=== PATIENT | male | born 1940 | race Caucasian/White ===

== ENCOUNTER 2021-06-01 13:11 | Inpatient (IN) | payer MEDICARE, BC ==
[~2021-06-01] VITALS: Ht 175.3 cm; Wt 66.3 kg
[2021-06-01] VITALS (11 sets, daily range): BP systolic 121–197; BP diastolic 55–79
--- NOTE | 2021-06-01 13:41 | REP ---
INDICATION: DYSPNEA/COUGH. COMPARISON: None. TECHNIQUE: Single portable AP view of the chest was performed. FINDINGS: There is a large pneumothorax on the right with collapse of the right lung. Left lung is well aerated with no acute infiltrate. There is no evidence of tension associated with the pneumothorax, the midline structures are not displaced. The heart is not enlarged. There is some calcification of the thoracic aorta.The visualized osseous structures appear intact. IMPRESSION: Large right pneumothorax. No deviation of the trachea or midline structures. <Electronically signed by Braden Sanchez > 06/01/21 [id number]
[2021-06-01] MEDS: LEVALBUTEROL 1.25 MG/0.5 ML CONCENTRATE NEB NEB SCH ×2 (14:00→19:26)
[2021-06-01 14:43] LABS: BASO % 0.1 % (0.0-1.0); EOS % 0.2 % (0.0-3.0); HEMATOCRIT 45.4 % (42.0-52.0); HEMOGLOBIN 15.3 g/dl (13.5-17.5); LYMPH # 0.7 10^3/uL (1.5-5.0); LYMPH % 7.2 % (24.0-44.0); MEAN CORPUSCULAR HEMOGLOBIN 32.6 pg (27.0-33.0); MEAN CORPUSCULAR HGB CONC 33.7 g/dl (32.0-36.5); MEAN CORPUSCULAR VOLUME 96.8 fl (80.0-96.0); MONO # 0.3 10^3/uL (0.0-0.8); MONO % 3.3 % (2.0-8.0); NEUTROPHILS # 9.1 10^3/uL (1.5-8.5); NEUTROPHILS % 88.7 % (36.0-66.0); PLATELET COUNT, AUTOMATED 200 10^3/uL (150-450); RED BLOOD COUNT 4.69 10^6/uL (4.30-6.10); WHITE BLOOD COUNT 10.2 10^3/uL (4.0-10.0)
[2021-06-01] MEDS ORDERED: VITA500C24 PO (15:12)
[2021-06-01] MEDS ORDERED: RAMI1CAP26 PO (15:12)
[2021-06-01] MEDS ORDERED: PRIM250T8 PO (15:12)
[2021-06-01] MEDS ORDERED: SM F10002 PO (15:12)
[2021-06-01] MEDS ORDERED: ATOR1TAB21 PO (15:12)
[2021-06-01] MEDS ORDERED: NIFE1TAB50 PO (15:12)
[2021-06-01] MEDS ORDERED: INDE60CA4 PO (15:12)
[2021-06-01] MEDS ORDERED: HYDR12.55 PO (15:12)
[2021-06-01] MEDS ORDERED: PENT400T23 PO (15:12)
[2021-06-01] MEDS ORDERED: ECOT81TA5 PO (15:12)
[2021-06-01] MEDS ORDERED: OYST500C PO (15:12)
[2021-06-01] MEDS ORDERED: KP F1200 PO (15:12)
[2021-06-01 15:19] LABS: ALBUMIN 3.2 GM/DL (3.2-5.2); ALT/SGPT 22 U/L (12-78); BILIRUBIN,DIRECT 0.2 MG/DL (0.0-0.2); BILIRUBIN,TOTAL 0.5 MG/DL (0.2-1.0); BLOOD UREA NITROGEN 13 MG/DL (7-18); CARBON DIOXIDE LEVEL 28 MEQ/L (21-32); CHLORIDE LEVEL 109 MEQ/L (98-107); CK-MB VALUE MASS < 1.0 NG/ML (<3.6); CPK CREATINE PHOSPHOKINASE 67 U/L (39-308); CREATININE FOR GFR 0.59 MG/DL (0.70-1.30); GLOMERULAR FILTRATION RATE > 60.0 (>35); GLUCOSE, FASTING 116 MG/DL (70-100); MB/CK RELATIVE INDEX 1.49 (< OR =4); NT-PRO BNP 271 PG/ML (<450); POTASSIUM SERUM 4.3 MEQ/L (3.5-5.1); SODIUM LEVEL 142 MEQ/L (136-145); THYROID STIMULATING HORMONE 0.763 uIU/ML (0.358-3.740); THYROXINE (T4) 10.4 UG/DL (4.5-12.0); TROPONIN I < 0.02 NG/ML (< 0.10)
[2021-06-01] MEDS ORDERED: BISACODYL 10 MG SUPP PR PRN (15:20)
[2021-06-01] MEDS ORDERED: ONDANSETRON 4MG/2ML VIAL IV PRN (15:20)
[2021-06-01] MEDS ORDERED: NORCO, ANEXSIA 5/325MG TABLET (HYDROcodone/ACETAMINOPHEN) PO PRN (15:20)
[2021-06-01] MEDS ORDERED: PERCOCET 5MG/325MG TAB PO PRN ×2 (15:20)
[2021-06-01] MEDS ORDERED: ACETAMINOPHEN TAB 650MG DOSE (2X325MG) PO PRN (15:20)
[2021-06-01] MEDS ORDERED: LEVALBUTEROL 1.25 MG/0.5 ML CONCENTRATE NEB NEB PRN (15:20)
[2021-06-01] MEDS ORDERED: HOME MED LIST COMPLETE! XX SCH (15:50)
[2021-06-01] MEDS ORDERED: LIDOCAINE 1% MDV 20ML VIAL As Ordered ONE (16:00)
[2021-06-01] MEDS ORDERED: MIDAZOLAM INJ 2MG/2ML VIAL (J2250 PER 1MG) As Ordered ONE (16:01)
--- NOTE | 2021-06-01 16:04 | ECGEPIP ---
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
--- NOTE | 2021-06-01 16:07 | HPEPDOC ---
[facility] Medical History & Physical Date of Admission Jun 01, 2021 Date of Service: Jun 01, 2021 History and Physical CHIEF COMPLAINT: Shortness of breath HISTORY OF PRESENT ILLNESS: 81-year-old male with a past medical history of hypertension and essential tremor. He developed sudden onset shortness of breath on Monday morning, with associated right-sided and central chest discomfort and pressure. Patient states that he felt well the day prior. Over the next 24 hours he developed worsening shortness of breath without cough or hemoptysis. Patient sought help at an urgent care center where he was given nasal cannula with oxygen and an EKG was obtained. He was thought to have A. fib and was sent to the ER. EKG in the ER did not reveal atrial fibrillation but showed sinus rhythm with PVCs. Patient's chest x-ray in the ER showed a large right-sided pneumothorax without evidence for tension. Dr. Jack was consulted from the ER and admitted to PCU under hospitalist service. Chest tube was placed on 06/01/2021 with subsequent lung reexpansion on chest x-ray. PAST MEDICAL HISTORY: Hypertension Essential tremor PAST SURGICAL HISTORY: RLE angioplast for PAD SOCIAL HISTORY: drinks 3-4 alcoholic drinks per night, denies hx of withdrawal active smoker, smoked all his life, smokes 1/4 pack now. no illicit drug use FAMILY HISTORY: reviewed with patient, no pertinent family history provided. ALLERGIES: Please see below. REVIEW OF SYSTEMS: 10 point ROS conducted, relevant findings are noted in HPI. HOME MEDICATIONS: Please see below. PHYSICAL EXAMINATION: VITAL SIGNS: please see below General: NAD, comfortable HEENT: PERRLA, EOMI, sclerae clear Neck: supple, normal ROM, no JVD Respiratory: R chest tube in place, good aeration of bilateral lung bases. CVS: RRR, normal S1, S2, no murmurs Abdo: soft, no masses, no hepatosplenomegaly, BS+, no rebound tenderness Extremities: no edema, pulses 2+, no cyanosis, cap refill < 2 seconds. Uric acid deposits R 2nd toe c/w hx of gout. MSK: no joint deformities, normal ROM Neuro: no focal neuro deficits, moving all 4 extremities, CN2-12 intact. Strength 5/5 in all 4 extremities. No nystagmus. Psych: calm, cooperative, AAO x 3 LABORATORY DATA: See below. IMAGING: CXR (06/01/21): IMPRESSION: Large right pneumothorax. No deviation of the trachea or midline structures. CXR (06/01/21): FINDINGS: The technique utilized in obtaining the radiograph has magnified the cardiac silhouette and accentuated the interstitial markings. The large right-sided pneumothorax has been reduced. A tiny minimal right apical pneumothorax persists. There is a right-sided thoracotomy tube in place the tip of which is in the apical region. The left lung is unchanged. There is no significant change in appearance of the cardiomediastinal silhouette or osseous structures. IMPRESSION: Reduced right-sided pneumothorax with resultant findings and right-sided chest tube as described above. MICROBIOLOGY: Please see below. ASSESSMENT: 81-year-old male with a past medical history of hypertension and essential tremor. He developed sudden onset shortness of breath on Monday morning, with associated right-sided and central chest discomfort and pressure. Diagnosed with a 100% R sided pneumothorax. . PLAN: R sided pneumothorax: imaging reviewed above. Chest tube placed by Dr. Jack, lung re-expanded on repeat CXR. Chest tube to suction. Plan for CT chest in AM. Pain control with oxycodone. Bowel regimen. PAD: resume ASA, pentoxyfylline. Hx of angioplasty RLE. Needs to f/u with vascu lar surgery on outpatient basis. HTN: resume ramipril 10 mg PO daily. Resume nifedipine 90 mg PO daily. Essential tremor: resume propranolol 60 mg daily. HLD: c/w atorvastatin 20 mg daily Chronic tobacco use: smoking cessation counseling provided. Suspect underlying emphysema. DVT pp: heparin 5000 units q12h. Vital Signs Vital Signs Date Time Temp Pulse Resp B/P (MAP) Pulse Ox O2 Delivery O2 Flow Rate FiO2 06/01/21 15:12 98.5 06/01/21 13:45 60 21 160/73 (102) 94 Nasal Cannula 2.0 Laboratory Data Labs 24H Laboratory Tests 2 06/01/21 13:23: Immature Granulocyte % (Auto) 0.5, Neutrophils (%) (Auto) 88.7H, Lymphocytes (%) (Auto) 7.2L, Monocytes (%) (Auto) 3.3, Eosinophils (%) (Auto) 0.2, Basophils (%) (Auto) 0.1, Neutrophils # (Auto) 9.1H, Lymphocytes # (Auto) 0.7L, Monocytes # (Auto) 0.3, Eosinophils # (Auto) 0.0, Basophils # (Auto) 0.0, Nucleated Red Blood Cells % (auto) 0.0, Anion Gap 5L, Glomerular Filtration Rate > 60.0, Calcium Level 9.0, Total Bilirubin 0.5, Direct Bilirubin 0.2, Aspartate Amino Transf (AST/SGOT) 15, Alanine Aminotransferase (ALT/SGPT) 22, Alkaline Phosphatase 67, Total Creatine Kinase 67, Creatine Kinase MB < 1.0, Creatine Kinase MB Relative Index 1.49, Troponin I < 0.02, OE-Suf-O-Type Natriuretic Peptide 271, Total Protein 7.0, Albumin 3.2, Albumin/Globulin Ratio 0.8, Thyroid Stimulating Hormone (TSH) 0.763, Thyroxine (T4) 10.4 06/01/21 14:17: Lactic Acid Level 1.7 CBC/BMP Laboratory Tests 06/01/21 13:23 Microbiology Microbiology 06/01/21 Respiratory Virus Panel (PCR) ([facility]), Received Pending 06/01/21 Blood Culture, Received Pending 06/01/21 Blood Culture, Received Pending Home Medications Scheduled Ascorbic Acid (Vitamin C) 500 Mg Capsule, 500 MG PO DAILY Aspirin (Ecotrin) 81 Mg Tablet.dr, 81 MG PO DAILY Atorvastatin Calcium (Atorvastatin Calcium) 20 Mg Tablet, 20 MG PO DAILY Calcium Carbonate/Vitamin D3 (Calcium 500+D Tablet Chew) 1 Each Tab.chew, 1 TAB PO DAILY Fish Oil/Dha/Epa (Fish Oil 1,200 mg Fish Oil) 1 Each Capsule, 1 CAP PO TID Flaxseed Oil (Flax Oil) 1,000 Mg Capsule, 1,000 MG PO BID Hydrochlorothiazide (Hydrochlorothiazide) 12.5 Mg Tablet, 12.5 MG PO DAILY Nifedipine (Nifedipine ER) 90 Mg Tab.er.24, 90 MG PO DAILY Pentoxifylline (Pentoxifylline) 400 Mg Tablet.er, 400 MG PO TID Primidone (Primidone) 250 Mg Tablet, 250 MG PO BID Propranolol Hcl (Inderal LA) 60 Mg Cap.sa.24h, 60 MG PO DAILY Ramipril (Ramipril) 10 Mg Capsule, 10 MG PO DAILY Allergies Coded Allergies: No Known Allergies (Verified Allergy, Unknown, 06/01/21) A-FIB/CHADSVASC A-FIB History Current/History of A-Fib/PAF?: No ANNEMARIE DODSON MD Jun 01, 2021 16:07
[2021-06-01] MEDS: KCL 20MEQ IN D5/NS 1000ML 1,000 ML IV SCH (16:14)
--- NOTE | 2021-06-01 16:44 | REP ---
INDICATION: after chest tube placed. COMPARISON: Earlier today TECHNIQUE: Portable FINDINGS: The technique utilized in obtaining the radiograph has magnified the cardiac silhouette and accentuated the interstitial markings. The large right-sided pneumothorax has been reduced. A tiny minimal right apical pneumothorax persists. There is a right-sided thoracotomy tube in place the tip of which is in the apical region. The left lung is unchanged. There is no significant change in appearance of the cardiomediastinal silhouette or osseous structures. IMPRESSION: Reduced right-sided pneumothorax with resultant findings and right-sided chest tube as described above. <Electronically signed by Nuno Martinez > 06/01/21 1640
[2021-06-01] MEDS ORDERED: MIDAZOLAM INJ 2MG/2ML VIAL (J2250 PER 1MG) IV STA (16:49)
[2021-06-01] MEDS ORDERED: LIDOCAINE 1% MDV 20ML VIAL SC ONE (16:50)
[2021-06-01] MEDS ORDERED: MIDAZOLAM INJ 2MG/2ML VIAL (J2250 PER 1MG) IV ONE (16:55)
[2021-06-01] MEDS: KETOROLAC 30 MG/ML 1ML VIAL IV SCH ×2 (17:20→23:08)
[2021-06-01 17:55] LABS: ABG BASE EXCESS -1.4 (-2.0-2.0); ABG HCO3 21.5 MEQ/L (22.0-26.0); ABG O2 SATURATION 97.6 % (95.0-99.0); ABG PARTIAL PRESSURE CO2 31.6 mmHg (35.0-45.0); ABG PARTIAL PRESSURE O2 97.7 mmHg (75.0-100.0); ABG STANDARD HCO3 23.3 MEQ/L (22.0-26.0); ABG TOTAL CO2 22.4 MEQ/L (23.0-31.0)
--- NOTE | 2021-06-01 18:05 | CR ---
CONSULTATION DATE: 06/01/2021 Patient seen at the requests of Dr. Sanchez of the emergency room for shortness of breath and pneumothorax on the right. HISTORY OF PRESENT ILLNESS: Patient is an 81-year-old white male who 3 days prior to admission on Monday awoke with some shortness of breath but mostly with chest pain and pressure. The pain was concentrated on the right side toward the middle of his chest. This progressed to shortness of breath. Over the next succeeding 2 days he became more and more short of breath such that he could hardly walk around his home. He denies having a significant cough or change in his cough prior to Monday. He has had no fever, chills, or sweats. His chest pain has all but disappeared now. He is short of breath and, in fact, in taking history he has trouble completing full sentences. There has been no dysphagia and no coughing with oral intake. He was found to have 100% pneumothorax on the right, and he was immediately admitted to the progressive care unit (PCU) for chest tube placement. MEDICAL HISTORY: 1. Hypertension. 2. Peripheral vascular disease. SURGICAL HISTORY: A right-sided lower leg angioplasty about 20 years ago. ALLERGIES: None. HOME MEDICATIONS: - vitamin C 500 mg daily - aspirin 81 mg daily - atorvastatin 20 mg daily - calcium carbonate with vitamin D one daily - fish oil 1200 mg three times a day - flax seed oil 1000 mg twice a day - hydrochlorothiazide 12.5 mg daily - nifedipine 90 mg daily - pentoxifylline 400 mg three times a day - primidone 250 mg twice a day - Inderal LA (propranolol) 60 mg daily - ramipril 10 mg daily HABITS: Smokes about a quarter pack a day of reservation cigarettes. He has been smoking all of his life. Alcohol: Drinks about three light beers a day. No illicit drugs. EXPOSURES: No dogs, birds, or cats at home. TRAVEL HISTORY: He has been to [place] a number of times. No travel history to the [facility] or foreign travel. OCCUPATIONAL HISTORY: He used to be a pre school teacher, teaching ceramics and mechanical drawing. FAMILY HISTORY: Not pertinent to the acute medical situation. REVIEW OF SYSTEMS: CONSTITUTIONAL: Without fevers, chills, sweats, or night sweats. EYES: Without diplopia, without amaurosis fugax, without prior jaundice. NOSE: Without epistaxis. MOUTH: Has his own teeth. RESPIRATORY: See history of present illness (HPI). CARDIAC: No prior history of myocardial infarctions. Sleeps in a slightly inclined bed to "prevent snoring." Has had orthopnea and paroxysmal nocturnal dyspnea the last few days but not before. No peripheral edema. He does have intermittent claudication in his right leg when walking longer distances. GASTROINTESTINAL: Without nausea, vomiting, diarrhea, constipation, melena, hematochezia. Without hematemesis or abdominal pain. GENITOURINARY; Without hematuria, dysuria, or prior history of renal stones. Has noticed decreased force of stream over the last few years. NEUROLOGIC: Without paresthesias, paralyses, or prior strokes. Has essential tremor. ENDOCRINE: Without diabetes or thyroid disease. PSYCHIATRIC: Without pathologic anxieties, depressions, or psychoses. PHYSICAL EXAMINATION: Well-developed, well-nourished white male in moderate to mild distress, unable to complete full sentences. Temperature is 98.4 with a heart rate of 79 in a sinus rhythm, respiratory rate of 18 without the use of accessory muscles, who is 92% saturated on 2 liters nasal cannula and whose blood pressure is 177/76. Eyes: Pupils equal, round, and reactive to light. Extraocular muscles intact. Sclerae anicteric. Nose without deformity. Head: Normocephalic. Mouth shows his mucous membranes to be pink and moist. Lips and commissures are without lesions. He has his own teeth but he has multiple missing teeth on the uppers and lowers. Neck is supple. There is no jugular venous distention, no subcutaneous emphysema. Trachea is midline. Lungs show markedly decreased breath sounds on the right with hyperresonance on the right. Left side shows normal vesicular sounds without wheezes, rhonchi, or rales. Percussion note is full to the diaphragm with normal resonance on the left side. Abdomen is soft, nontender. Bowel sounds are positive. There is no hepatomegaly. No costovertebral angle (CVA) tenderness. Pulses show absent dorsalis pedis pulses. I can barely feel his femoral pulses, and he has bilateral bruits, albeit soft. He has full carotid upstrokes without bruits. Skin was warm, dry, and perfused without cyanosis or mottling, including that of the nailbeds and knees. Extremities show no pretibial edema, no calf tenderness, no differential swelling of the upper extremities. Neck is supple. There is no jugular venous distention, no subcutaneous emphysema. Trachea is midline. There is no thyromegaly or lymphadenopathy. Psychiatric shows him to be awake, alert, oriented times three with appropriate mood and affect and conversational. Neurologic shows II-XII intact, Normal gross motor, gross sensation intact. Gait is not tested. He does have a very coarse intention tremor. INVESTIGATIONS: White count is 10.2 with hemoglobin and hematocrit of 15.3 and 45.4, respectively, with a platelet count of 200. Differential shows 88% neutrophils, 7% lymphocytes, 3% monocytes. There are no immature forms or toxic granulations. Chemistries show essentially normal electrolytes with a BUN and creatinine of 13 and 0.59, a glucose of 116, and a calcium of 9.0 with a corresponding albumin of 3.2. AST and ALT are normal, as is his bilirubin. His chest x-ray shows a complete pneumothorax on the right side. Lung is pancaked along the mediastinum. There is a mediastinal shift to the left. There is no subcutaneous emphysema. IMPRESSION: 1. One hundred percent pneumothorax on the right. 2. Tobacco abuse, probably underlying emphysema. 3. Peripheral vascular disease. 4. Hypertension. 5. Essential tremor. 6. Dyslipidemia. PLAN AND DISCUSSION: I will immediately place a chest tube to expand the lung. I will place the chest tube on suction. Tomorrow I will obtain a CT scan to see what is underlying the lung. Hopefully he will not have a continuous air leak and as this is his first pneumothorax we can treat this conservatively without taking him to the operating room. We will address pain control from the chest tube and undertake prophylactic heparinization for deep venous thrombosis (DVT) prophylaxis.
--- NOTE | 2021-06-01 18:05 | RO ---
OPERATIVE NOTE DATE OF OPERATION: 06/01/2021 PREOPERATIVE DIAGNOSIS: One hundred percent pneumothorax on the right. POSTOPERATIVE DIAGNOSIS: One hundred percent pneumothorax on the right. PROCEDURE: Insertion of a right anterior-superior chest tube with moderate sedation. SURGEON: Dr. Leonard Jack DESCRIPTION OF PROCEDURE: Under satisfactory moderate sedation eventually achieved with 4 mg of Versed, patient was prepped and draped in the usual sterile fashion. The proposed incision site had been previously marked and was infiltrated with 1% lidocaine down to the pleura. An incision was made, and a tunnel was created in the chest without difficulty. A #20 chest tube was placed and directed toward the apex. The chest tube was secured to the chest wall with a #2 Tevdek suture and connected to the Pleur-evac. There was a large gush of air, which eventually stopped. Patient tolerated the procedure well, and a chest x-ray is pending.
[2021-06-01] MEDS ORDERED: LORazepam 2 MG TAB PO PRN (19:40)
[2021-06-01] MEDS: DOCUSATE SODIUM 100MG CAPSULE PO SCH (21:07)
[2021-06-01] MEDS: PRIMIDONE 250 MG TAB PO SCH (21:07)
[2021-06-01] MEDS: PENTOXIFYLLINE 400 MG TAB PO SCH (21:08)
[2021-06-01] MEDS: HEPARIN SOD (PORCINE) 5000UNITS/ML 1ML VIAL/SYRINGE SC SCH (21:08)
[2021-06-01] MEDS: THIAMINE 100 MG TAB PO SCH (21:08)
[2021-06-02] VITALS (16 sets, daily range): BP systolic 135–156; BP diastolic 59–90; O2SAT 95
[2021-06-02] MEDS: LEVALBUTEROL 1.25 MG/0.5 ML CONCENTRATE NEB NEB SCH ×4 (02:00→19:34)
[2021-06-02] MEDS: KCL 20MEQ IN D5/NS 1000ML 1,000 ML IV SCH ×3 (03:58→17:26)
[2021-06-02 04:55] LABS: BASO % 0.1 % (0.0-1.0); EOS % 0.2 % (0.0-3.0); HEMATOCRIT 43.3 % (42.0-52.0); HEMOGLOBIN 14.3 g/dl (13.5-17.5); LYMPH # 2.2 10^3/uL (1.5-5.0); LYMPH % 15.4 % (24.0-44.0); MEAN CORPUSCULAR HEMOGLOBIN 32.4 pg (27.0-33.0); MEAN CORPUSCULAR VOLUME 98.2 fl (80.0-96.0); MONO # 1.7 10^3/uL (0.0-0.8); MONO % 11.7 % (2.0-8.0); NEUTROPHILS # 10.4 10^3/uL (1.5-8.5); PLATELET COUNT, AUTOMATED 190 10^3/uL (150-450); RED BLOOD COUNT 4.41 10^6/uL (4.30-6.10); WHITE BLOOD COUNT 14.5 10^3/uL (4.0-10.0)
[2021-06-02 05:16] LABS: BLOOD UREA NITROGEN 21 MG/DL (7-18); CALCIUM LEVEL 8.2 MG/DL (8.8-10.2); CARBON DIOXIDE LEVEL 27 MEQ/L (21-32); CHLORIDE LEVEL 111 MEQ/L (98-107); CREATININE FOR GFR 0.74 MG/DL (0.70-1.30); GLOMERULAR FILTRATION RATE > 60.0 (>35); GLUCOSE, FASTING 108 MG/DL (70-100); MAGNESIUM LEVEL 1.9 MG/DL (1.8-2.4); POTASSIUM SERUM 3.3 MEQ/L (3.5-5.1); SODIUM LEVEL 144 MEQ/L (136-145)
[2021-06-02] MEDS: KETOROLAC 30 MG/ML 1ML VIAL IV SCH ×4 (05:31→23:33)
[2021-06-02 06:09] LABS: ABG BASE EXCESS 0.7 (-2.0-2.0); ABG HCO3 24.1 MEQ/L (22.0-26.0); ABG O2 SATURATION 92.6 % (95.0-99.0); ABG PARTIAL PRESSURE CO2 34.9 mmHg (35.0-45.0); ABG PARTIAL PRESSURE O2 61.5 mmHg (75.0-100.0); ABG TOTAL CO2 25.2 MEQ/L (23.0-31.0); ABG pH (ARTERIAL) 7.457 UNITS (7.350-7.450)
[2021-06-02] MEDS ORDERED: POTASSIUM CHLORIDE 10MEQ SR TABLET PO ONE ×2 (07:45→09:20)
[2021-06-02] MEDS ORDERED: FLUBLOK(EGG FREE)(QUAD)INFLUENZA VACC 0.5ML SYRINGE 18YRS & OLDER IM ONE (09:00)
--- NOTE | 2021-06-02 09:52 | REP ---
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 TECHNIQUE: Standard helical technique without contrast FINDINGS: There is no mediastinal or hilar adenopathy. There is a tiny amount of right pleural fluid in the dependent portion. This is seen in conjunction with mild pleural thickening. There is no pericardial effusion. The imaged upper abdomen shows bilateral renal calcifications most consistent with renovascular calcifications. Evaluation of the osseous structures shows spinal degenerative changes and bony demineralization. Evaluation of the lung luke shows a right-sided thoracotomy tube the tip of which is in the right lung apical region. There is a slight degree of subcutaneous emphysema. There is a mild zone of increased interstitial markings in the posterior right middle lobe and posterior right upper lobe abutting the major fissure. This is nonspecific. There is evidence of biapical pleuroparenchymal scarring. There is no evidence of a pneumothorax. There is a 6 mm size nodule in the left lower lobe. There is a minimal focal zone of ground-glass density in the anterior basal segment of the left lower lobe and in the inferior lingula. There is a small amount of debris in the bronchus intermedius. IMPRESSION: 1. There is the tiniest amount a right pleural fluid. Right-sided thoracotomy tube as described above. No evidence of a pneumothorax. 2. Zones of increased interstitial markings and ground-glass densities as described above likely representing subsegmental atelectatic change. The small zone of increased interstitial markings in the right lung abutting the major fissure potentially represents focal re-expansion pulmonary edema. 3. Left lung nodule as described above. According to the revised Fleischner society criteria this represents a lung rads category 3 nodule for which a six-month follow-up chest CT is recommended. 4. Other findings as described above. <Electronically signed by Nuno Martinez > 06/02/21 1734
--- NOTE | 2021-06-02 09:55 | IPN ---
PROGRESS NOTE DATE: 06/02/2021 SUBJECTIVE: Mr. Burton is doing well today. He has just come back from his CAT scan which I will discuss below. His pain is being fairly well controlled. He is complaining of most of the pain in his back where the chest tube is located at the apex. His vital signs shows a maximum temperature of 99.1 with a heart rate that ranges between 96 and 52 and is sinus rhythm. Respiratory rate of 17-22 without the use of accessory muscles. He is 96% to 98% saturated on now one liter nasal cannula. His blood pressures range between 146/85 to 136/59. His intake and output over the past 24 hours has been recorded as 431 in and nothing out. He weighs 95.3 kg today, which is vastly different from 63 kg yesterday. I suspect the weights are inaccurate as they do not match his intake and output at all. PHYSICAL EXAMINATION: He has equal breath sound on either side. He has no wheezing, rales or rhonchi. Percussion was full to the diaphragm. It is equally resonant on both sides. Cardiac exam is without murmurs, clicks, gallops or rubs. I cannot feel his point of maximum impulse (PMI). S1 and S2 are normal. Abdomen is soft and nontender; bowel sounds are positive. There is no hepatomegaly, no costovertebral angle (CVA) tenderness. Extremities have no pretibial edema, no calf tenderness. No differential swelling of the upper extremities. Skin is warm and dry, and perfused without cyanosis or mottling including that of the nailbeds and knees. Neck is supple. There is no jugular venous distension, no subcutaneous emphysema. Trachea is midline. Mouth shows the mucous membranes to be pink and moist. Lips, tongue, and gums show no thrush. Eyes show his pupils to be equal and reactive. Extraocular motions are intact. Sclerae nonicteric. Neurologically shows cranial nerves II-XII intact with gross motor, gross sensation intact. Gait is also intact. Psychiatric shows him to be awake, alert and oriented times three with appropriate mood and affect and conversational. His white count today is 14.5, up from 10.2 yesterday. Hemoglobin and hematocrit 14.3 and 43.3, unchanged from yesterday, with a platelet count of 190. Differential shows 72% neutrophils, 15% lymphocytes, 11% monocytes. There are no immature forms or toxic granulations. His electrolytes show a marginally low potassium of 3.3. BUN and creatinine are 21 and 0.74 respectively. Glucose is 108 with a calcium of 8.2 and magnesium of 1.9. His chest CT today surprisingly shows very few emphysematous changes. He does have a few larger holes in his upper lobe, which are quite minimal. There is what looks to be a small bleb at the very apex of his lung. I see no mediastinal lymphadenopathy, and there is no pericardial effusion. There are no lung masses. He has some residual atelectasis from his lung expansion. IMPRESSION: 1. Spontaneous pneumothorax. 2. Minimal emphysematous changes. 3. Hypertension. 4. Peripheral vascular disease. 5. Essential tremor. 6. Dyslipidemia. PLAN AND DISCUSSION: I am quite gratified and surprised about his CT scan because of his smoking history. I have counseled him that his smoking days are over. As he is not leaking today, I will take his chest tube off suction. If the x-ray tomorrow shows his lung fully expanded to the chest wall, I will then remove his chest tube and plan for discharge the day after.
[2021-06-02] MEDS: HEPARIN SOD (PORCINE) 5000UNITS/ML 1ML VIAL/SYRINGE SC SCH ×2 (10:17→20:20)
[2021-06-02] MEDS: DOCUSATE SODIUM 100MG CAPSULE PO SCH ×2 (10:18→20:20)
[2021-06-02] MEDS: PANTOPRAZOLE 40MG TAB (PROTONIX) PO SCH (10:18)
[2021-06-02] MEDS: ramipriL 5 MG CAP PO SCH (10:18)
[2021-06-02] MEDS: MOM 30ML SUSPENSION UDC PO SCH (10:18)
[2021-06-02] MEDS: ASPIRIN 81MG ENTERIC TABLET PO SCH (10:18)
[2021-06-02] MEDS: MULTIVITAMINS/MINERALS THERAP 1 TAB PO SCH (10:19)
[2021-06-02] MEDS: ATORVASTATIN 20 MG TAB PO SCH (10:19)
[2021-06-02] MEDS: PROPRANOLOL 60 MG LA CAP PO SCH (10:19)
[2021-06-02] MEDS: NIFEdipine 30 MG XL TAB PO SCH (10:20)
[2021-06-02] MEDS: hydroCHLOROthiazide 12.5 MG CAPSULE PO SCH (10:20)
[2021-06-02] MEDS: PRIMIDONE 250 MG TAB PO SCH ×2 (10:20→20:20)
[2021-06-02] MEDS: PENTOXIFYLLINE 400 MG TAB PO SCH ×3 (10:21→20:20)
[2021-06-02] MEDS: FOLIC ACID 1 MG TAB PO SCH (10:22)
[2021-06-02] MEDS: ASCORBIC ACID 500 MG TAB PO SCH (10:22)
[2021-06-02] MEDS: THIAMINE 100 MG TAB PO SCH ×2 (10:22→20:20)
--- NOTE | 2021-06-02 10:58 | REP ---
INDICATION: after chest tube placed. COMPARISON: Multiple the latest 06/01/2021 a 4:31 p.m. a portable exam TECHNIQUE: PA and lateral FINDINGS: The cardiomediastinal silhouette is essentially unchanged. The heart is not enlarged. The right-sided thoracotomy tube is unchanged. There is a tiny minimal barely perceptible right apical pneumothorax. The subtle discoid opacities seen previously in the right lung field have resolved. No acute patchy parenchymal opacities or pleural effusions have developed. There is no change in the osseous structures. IMPRESSION: Findings as described above. There is no evidence of acute cardiopulmonary disease. <Electronically signed by Nuno Martinez > 06/02/21 [id number]
--- NOTE | 2021-06-02 17:31 | IPNPDOC ---
Date Seen The patient was seen on 06/02/21. Progress Note SUBJECTIVE: patient seen and examined at bedside. Doing well. No acute events overnight. Saturating well on 4L. Reports discomfort of L chest wall at chest tube site. OBJECTIVE PHYSICAL EXAMINATION: VITAL SIGNS: Please see below. General: NAD, comfortable HEENT: PERRLA, EOMI, sclerae clear Neck: supple, normal ROM, no JVD Respiratory: R chest tube in place, good aeration of bilateral lung bases. CVS: RRR, normal S1, S2, no murmurs Abdo: soft, no masses, no hepatosplenomegaly, BS+, no rebound tenderness Extremities: no edema, pulses 2+, no cyanosis, cap refill < 2 seconds. Uric acid deposits R 2nd toe c/w hx of gout. MSK: no joint deformities, normal ROM Neuro: no focal neuro deficits, moving all 4 extremities, CN2-12 intact. Strength 5/5 in all 4 extremities. No nystagmus. Psych: calm, cooperative, AAO x 3 LABORATORY DATA, IMAGING STUDIES, MICROBIOLOGY: Please see below. CXR (06/01/21): IMPRESSION: Large right pneumothorax. No deviation of the trachea or midline structures. CXR (06/01/21): FINDINGS: The technique utilized in obtaining the radiograph has magnified the cardiac silhouette and accentuated the interstitial markings. The large right-sided pneumothorax has been reduced. A tiny minimal right apical pneumothorax persists. There is a right-sided thoracotomy tube in place the tip of which is in the apical region. The left lung is unchanged. There is no significant change in appearance of the cardiomediastinal silhouette or osseous structures. IMPRESSION: Reduced right-sided pneumothorax with resultant findings and right-sided chest tube as described above. MICROBIOLOGY: Please see below. ASSESSMENT: 81-year-old male with a past medical history of hypertension and essential tremor. He developed sudden onset shortness of breath on Monday morning, with associated right-sided and central chest discomfort and pressure. Diagnosed with a 100% R sided pneumothorax. . PLAN: R sided pneumothorax: imaging reviewed above. Chest tube placed by Dr. Jack, lung re-expanded on repeat CXR. Chest tube to suction. CT chest shows resolution of pneumothorax. Minimal emphysematous changes. Chest tube not leaking. Plan is to remove chest tube if CXR shows full lung re-expansion. L lung nodule: 6 mm, L lower lobe. Needs [address] follow up. PAD: resume ASA, pentoxyfylline. Hx of angioplasty RLE. Needs to f/u with vascular surgery on outpatient basis. HTN: C/w ramipril 10 mg PO daily. C/w nifedipine 90 mg PO daily. Hypokalemia: replaced. Essential tremor: resume propranolol 60 mg daily. HLD: c/w atorvastatin 20 mg daily Chronic tobacco use: smoking cessation counseling provided. Suspect underlying emphysema. DVT pp: heparin 5000 units q12h. Dispo: pending clinical improvement. VS, I&O, 24H, Fishbone Vital Signs/I&O Vital Signs Date Time Temp Pulse Resp B/P (MAP) Pulse Ox O2 Delivery O2 Flow Rate FiO2 06/02/21 16:36 18 06/02/21 16:35 95 Room Air 06/02/21 16:00 98.0 50 139/64 (89) 4.0 I&O- Last 24 Hours up to 6 AM 06/02/21 06:00 Intake Total 531 ml Output Total 5 ml Balance 526 ml Laboratory Data 24H LABS Laboratory Tests 2 06/01/21 17:38: Blood Gas Bicarbonate Standard 23.3, Arterial Blood pH 7.450, Arterial Blood Partial Pressure CO2 31.6L, Arterial Blood Partial Pressure O2 97.7, Arterial Blood Total CO2 22.4L, Arterial Blood HCO3 21.5L, Arterial Blood Base Excess - 1.4, Arterial Blood Oxygen Saturation 97.6 06/02/21 04:22: Immature Granulocyte % (Auto) 0.6, Neutrophils (%) (Auto) 72.0H, Lymphocytes (%) (Auto) 15.4L, Monocytes (%) (Auto) 11.7H, Eosinophils (%) (Auto) 0.2, Basophils (%) (Auto) 0.1, Neutrophils # (Auto) 10.4H, Lymphocytes # (Auto) 2.2, Monocytes # (Auto) 1.7H, Eosinophils # (Auto) 0.0, Basophils # (Auto) 0.0, Nucleated Red Blood Cells % (auto) 0.0, Anion Gap 6L, Glomerular Filtration Rate > 60.0, Calcium Level 8.2L, Magnesium Level 1.9 06/02/21 05:37: Blood Gas Bicarbonate Standard 25.0, Arterial Blood pH 7.457H, Arterial Blood Partial Pressure CO2 34.9L, Arterial Blood Partial Pressure O2 61.5L, Arterial Blood Total CO2 25.2, Arterial Blood HCO3 24.1, Arterial Blood Base Excess 0.7, Arterial Blood Oxygen Saturation 92.6L CBC/BMP Laboratory Tests 06/02/21 04:22 Microbiology Microbiology 06/01/21 Respiratory Virus Panel (PCR) ([facility]) - Final, Complete 06/01/21 Blood Culture - Preliminary, Resulted No growth after 24 hours . All specim... 06/01/21 Blood Culture - Preliminary, Resulted No growth after 24 hours . All specim... ANNEMARIE DODSON MD Jun 02, 2021 17:31
[2021-06-03] VITALS: BP 139/63
[2021-06-03] MEDS: LEVALBUTEROL 1.25 MG/0.5 ML CONCENTRATE NEB NEB SCH ×4 (02:01→19:44)
[2021-06-03 04:00] VITALS: BP 136/60
[2021-06-03] MEDS: KETOROLAC 30 MG/ML 1ML VIAL IV SCH ×4 (05:14→23:00)
[2021-06-03 05:50] LABS: BASO % 0.2 % (0.0-1.0); EOS # 0.2 10^3/uL (0.0-0.5); EOS % 2.3 % (0.0-3.0); HEMATOCRIT 40.3 % (42.0-52.0); LYMPH # 2.2 10^3/uL (1.5-5.0); LYMPH % 23.4 % (24.0-44.0); MEAN CORPUSCULAR HEMOGLOBIN 31.9 pg (27.0-33.0); MEAN CORPUSCULAR HGB CONC 32.3 g/dl (32.0-36.5); MEAN CORPUSCULAR VOLUME 98.8 fl (80.0-96.0); NEUTROPHILS # 5.9 10^3/uL (1.5-8.5); NEUTROPHILS % 62.8 % (36.0-66.0); PLATELET COUNT, AUTOMATED 186 10^3/uL (150-450); RED BLOOD COUNT 4.08 10^6/uL (4.30-6.10); WHITE BLOOD COUNT 9.3 10^3/uL (4.0-10.0)
[2021-06-03 06:17] LABS: BLOOD UREA NITROGEN 15 MG/DL (7-18); CALCIUM LEVEL 7.6 MG/DL (8.8-10.2); CARBON DIOXIDE LEVEL 27 MEQ/L (21-32); CHLORIDE LEVEL 115 MEQ/L (98-107); CREATININE FOR GFR 0.54 MG/DL (0.70-1.30); GLOMERULAR FILTRATION RATE > 60.0 (>35); GLUCOSE, FASTING 114 MG/DL (70-100); POTASSIUM SERUM 3.8 MEQ/L (3.5-5.1); SODIUM LEVEL 146 MEQ/L (136-145)
[2021-06-03] MEDS: KCL 20MEQ IN D5/NS 1000ML 1,000 ML IV SCH (07:33)
[2021-06-03 08:00] VITALS: BP 174/74
[2021-06-03] MEDS: hydroCHLOROthiazide 12.5 MG CAPSULE PO SCH (08:35)
[2021-06-03] MEDS: THIAMINE 100 MG TAB PO SCH ×2 (08:35→21:23)
[2021-06-03] MEDS: MULTIVITAMINS/MINERALS THERAP 1 TAB PO SCH (08:36)
[2021-06-03] MEDS: ASPIRIN 81MG ENTERIC TABLET PO SCH (08:36)
[2021-06-03] MEDS: PANTOPRAZOLE 40MG TAB (PROTONIX) PO SCH (08:36)
[2021-06-03] MEDS: FOLIC ACID 1 MG TAB PO SCH (08:37)
[2021-06-03] MEDS: ATORVASTATIN 20 MG TAB PO SCH (08:37)
[2021-06-03] MEDS: ASCORBIC ACID 500 MG TAB PO SCH (08:37)
[2021-06-03] MEDS: MOM 30ML SUSPENSION UDC PO SCH (08:49)
[2021-06-03] MEDS: DOCUSATE SODIUM 100MG CAPSULE PO SCH ×2 (08:49→21:23)
[2021-06-03] MEDS: ramipriL 5 MG CAP PO SCH (08:50)
[2021-06-03] MEDS: PENTOXIFYLLINE 400 MG TAB PO SCH ×3 (08:50→21:23)
[2021-06-03] MEDS: PROPRANOLOL 60 MG LA CAP PO SCH (08:50)
[2021-06-03] MEDS: NIFEdipine 30 MG XL TAB PO SCH (08:50)
[2021-06-03] MEDS: PRIMIDONE 250 MG TAB PO SCH ×2 (08:51→21:23)
[2021-06-03] MEDS: HEPARIN SOD (PORCINE) 5000UNITS/ML 1ML VIAL/SYRINGE SC SCH ×2 (08:51→21:23)
--- NOTE | 2021-06-03 10:40 | REP ---
INDICATION: after chest tube placed. COMPARISON: Multiple the latest yesterday at 9:56 a.m. TECHNIQUE: PA and lateral FINDINGS: The barely perceptible right apical pneumothorax seen yesterday has increased slightly in size an although tiny is well demarcated today. The right-sided thoracotomy tube is unchanged. The cardiomediastinal silhouette is unchanged. There is no additional significant change in appearance of the lung luke. There is no significant change in appearance of the osseous structures. IMPRESSION: There is been a slight increase in the size of the right apical pneumothorax as described above. There are no other significant changes. <Electronically signed by Nuno Martinez > 06/03/21 [id number]
[2021-06-03 12:00] VITALS: BP 153/64
--- NOTE | 2021-06-03 13:47 | IPN ---
PROGRESS NOTE DATE: 06/03/2021 Mr. Burton is doing quite well today; however, his chest x-ray shows some separation of the lung from the chest wall at the apex. He is breathing comfortably, and his pain is being well controlled at the chest tube insertion site. His vital signs show a maximum temperature (T-max) of 98.3 with a heart rate that ranges between 42-61 in a sinus rhythm, respiratory rate of 17-19 without the use of accessory muscles, who is 97%-93% saturated on room air and whose blood pressure is ranging between 174/74 to 136/60. His intake and output for the past 24 hours have been recorded as 890 in and 5 mL out. He has had one incontinent void. Only 5 mL have come out of the chest tube, and there is no air leak with forceable cough; however, there is air evacuation placing him back on suction. Weight today is 68.5 kg compared to 63 kg on 06/01/2021. PHYSICAL EXAMINATION: He is equal breath sounds on either side without wheezes, rhonchi, or rales. Percussion note is full to the diaphragm. Cardiac exam is without murmurs, clicks, gallops, or rubs. I cannot feel his point of maximal impulse (PMI). S1 and S2 are normal. Abdomen is soft and nontender. Bowel sounds are positive. There is no hepatomegaly. No costovertebral angle (CVA) tenderness. Extremities show no pretibial edema, no calf tenderness, no differential swelling of the upper extremities. Skin is warm, dry, and perfused without cyanosis or mottling, including that of the nailbeds and knees. Neck is supple. There is no jugular venous distention. No subcutaneous emphysema. Trachea is midline. Mouth shows the mucous membranes to be pink and moist. Lips and commissures without lesions. No thrush. Eyes show his pupils to be equal and reactive. Extraocular motion intact. Sclerae anicteric. Neurologic shows II-XII intact. Normal gross motor, gross sensation intact. Gait is not tested. Psychiatric shows him to be awake, alert, and oriented times three with appropriate mood and affect and conversational. His white count today is 9.3 with a hemoglobin and hematocrit of 13.0 and 40.3, respectively. Platelet count is 186. Differential shows 62% neutrophils, 23% lymphocytes, 11% monocytes. There are no immature forms or toxic granulations. His electrolytes today show marginally high sodium of 146 with a potassium of 3.8 and BUN and creatinine of 15 and 0.54. Glucose is 114 with a calcium of 7.6. His chest x-ray, as noted above, shows a half a centimeter space at the apex of the right hemithorax. Chest tube is in good place. IMPRESSION: 1. Spontaneous pneumothorax, right side. 2. Tobacco abuse. 3. Peripheral vascular disease. 4. Hypertension. 5. Essential tremor. 6. Dyslipidemia. PLAN AND DISCUSSION: As noted in yesterday's progress note, I was quite gratified with his chest CT showing very few emphysematous changes. He did look as if he had a very small bleb at the apex. When putting the chest tube back on suction, there was an evacuation of air. I would like to very much try and keep him out of the operating room, as this is his first pneumothorax. In order to get the lung to heal, I need to apply the lung to the chest wall and place him back on suction. Mr. Burton is a bit disappointed in not being able to go home today, but I indicated to him that it would be prudent to keep him another 2-3 days.
[2021-06-03 16:00] VITALS: BP 160/70
[2021-06-03 20:00] VITALS: BP 154/66
--- NOTE | 2021-06-03 21:09 | IPNPDOC ---
Date Seen The patient was seen on 06/03/21. Progress Note SUBJECTIVE: patient seen and examined at bedside. Doing well. No acute events overnight. Saturating well on 4L. Reports discomfort of L chest wall at chest tube site. OBJECTIVE PHYSICAL EXAMINATION: VITAL SIGNS: Please see below. General: NAD, comfortable HEENT: PERRLA, EOMI, sclerae clear Neck: supple, normal ROM, no JVD Respiratory: R chest tube in place, good aeration of bilateral lung bases. CVS: RRR, normal S1, S2, no murmurs Abdo: soft, no masses, no hepatosplenomegaly, BS+, no rebound tenderness Extremities: no edema, pulses 2+, no cyanosis, cap refill < 2 seconds. Uric acid deposits R 2nd toe c/w hx of gout. MSK: no joint deformities, normal ROM Neuro: no focal neuro deficits, moving all 4 extremities, CN2-12 intact. Strength 5/5 in all 4 extremities. No nystagmus. Psych: calm, cooperative, AAO x 3 LABORATORY DATA, IMAGING STUDIES, MICROBIOLOGY: Please see below. CXR (06/01/21): IMPRESSION: Large right pneumothorax. No deviation of the trachea or midline structures. CXR (06/01/21): FINDINGS: The technique utilized in obtaining the radiograph has magnified the cardiac silhouette and accentuated the interstitial markings. The large right-sided pneumothorax has been reduced. A tiny minimal right apical pneumothorax persists. There is a right-sided thoracotomy tube in place the tip of which is in the apical region. The left lung is unchanged. There is no significant change in appearance of the cardiomediastinal silhouette or osseous structures. IMPRESSION: Reduced right-sided pneumothorax with resultant findings and right-sided chest tube as described above. MICROBIOLOGY: Please see below. ASSESSMENT: 81-year-old male with a past medical history of hypertension and essential tremor. He developed sudden onset shortness of breath on Monday morning, with associated right-sided and central chest discomfort and pressure. Diagnosed with a 100% R sided pneumothorax. . PLAN: R sided pneumothorax: imaging reviewed above. Chest tube placed by Dr. Jack, lung re-expanded on repeat CXR. Chest tube to suction. CT chest shows resolution of pneumothorax. Minimal emphysematous changes. Dr. Jack placed tube back to suction. Wishes to keep patient another 2-3 days to ensure no leak/resolution of pnx. L lung nodule: 6 mm, L lower lobe. Needs [address] follow up. PAD: resume ASA, pentoxyfylline. Hx of angioplasty RLE. Needs to f/u with vascular surgery on outpatient basis. HTN: C/w ramipril 10 mg PO daily. C/w nifedipine 90 mg PO daily. Hypokalemia: replaced. Essential tremor: resume propranolol 60 mg daily. HLD: c/w atorvastatin 20 mg daily Chronic tobacco use: smoking cessation counseling provided. Suspect underlying emphysema. DVT pp: heparin 5000 units q12h. Dispo: pending clinical improvement. VS, I&O, 24H, Fishbone Vital Signs/I&O Vital Signs Date Time Temp Pulse Resp B/P (MAP) Pulse Ox O2 Delivery O2 Flow Rate FiO2 06/03/21 20:00 97.8 51 18 154/66 (95) 100 Room Air 06/02/21 16:00 4.0 I&O- Last 24 Hours up to 6 AM 06/03/21 06:00 Intake Total 1390 ml Output Total 125 ml Balance 1265 ml Laboratory Data 24H LABS Laboratory Tests 2 06/03/21 05:03: Immature Granulocyte % (Auto) 0.3, Neutrophils (%) (Auto) 62.8, Lymphocytes (%) (Auto) 23.4L, Monocytes (%) (Auto) 11.0H, Eosinophils (%) (Auto) 2.3, Basophils (%) (Auto) 0.2, Neutrophils # (Auto) 5.9, Lymphocytes # (Auto) 2.2, Monocytes # (Auto) 1.0H, Eosinophils # (Auto) 0.2, Basophils # (Auto) 0.0, Nucleated Red Blood Cells % (auto) 0.0, Anion Gap 4L, Glomerular Filtration Rate > 60.0, Calcium Level 7.6L CBC/BMP Laboratory Tests 06/03/21 05:03 Microbiology Microbiology 06/01/21 Respiratory Virus Panel (PCR) ([facility]) - Final, Complete 06/01/21 Blood Culture - Preliminary, Resulted No Growth after 48 hours. All Specime... 06/01/21 Blood Culture - Preliminary, Resulted No Growth after 48 hours. All Specime... ANNEMARIE DODSON MD Jun 03, 2021 21:08
[2021-06-04] VITALS (15 sets, daily range): BP systolic 144–183; BP diastolic 64–84; O2SAT 95–100
[2021-06-04] MEDS: LEVALBUTEROL 1.25 MG/0.5 ML CONCENTRATE NEB NEB SCH ×4 (02:00→19:41)
[2021-06-04] MEDS: KETOROLAC 30 MG/ML 1ML VIAL IV SCH ×4 (05:21→23:14)
[2021-06-04 05:57] LABS: BASO % 0.2 % (0.0-1.0); EOS # 0.4 10^3/uL (0.0-0.5); EOS % 4.1 % (0.0-3.0); HEMOGLOBIN 13.1 g/dl (13.5-17.5); LYMPH # 1.8 10^3/uL (1.5-5.0); LYMPH % 19.2 % (24.0-44.0); MEAN CORPUSCULAR HEMOGLOBIN 32.3 pg (27.0-33.0); MEAN CORPUSCULAR HGB CONC 33.6 g/dl (32.0-36.5); MEAN CORPUSCULAR VOLUME 96.1 fl (80.0-96.0); MONO % 10.8 % (2.0-8.0); NEUTROPHILS # 6.2 10^3/uL (1.5-8.5); NEUTROPHILS % 65.2 % (36.0-66.0); PLATELET COUNT, AUTOMATED 201 10^3/uL (150-450); RED BLOOD COUNT 4.06 10^6/uL (4.30-6.10); WHITE BLOOD COUNT 9.5 10^3/uL (4.0-10.0)
[2021-06-04 06:26] LABS: BLOOD UREA NITROGEN 14 MG/DL (7-18); CALCIUM LEVEL 8.1 MG/DL (8.8-10.2); CARBON DIOXIDE LEVEL 30 MEQ/L (21-32); CHLORIDE LEVEL 114 MEQ/L (98-107); GLOMERULAR FILTRATION RATE > 60.0 (>35); GLUCOSE, FASTING 97 MG/DL (70-100); SODIUM LEVEL 144 MEQ/L (136-145)
[2021-06-04] MEDS: MOM 30ML SUSPENSION UDC PO SCH (09:00)
[2021-06-04] MEDS: MULTIVITAMINS/MINERALS THERAP 1 TAB PO SCH (09:56)
[2021-06-04] MEDS: HEPARIN SOD (PORCINE) 5000UNITS/ML 1ML VIAL/SYRINGE SC SCH ×2 (09:56→20:44)
[2021-06-04] MEDS: ATORVASTATIN 20 MG TAB PO SCH (09:56)
[2021-06-04] MEDS: PANTOPRAZOLE 40MG TAB (PROTONIX) PO SCH (09:57)
[2021-06-04] MEDS: PENTOXIFYLLINE 400 MG TAB PO SCH ×3 (09:57→20:45)
[2021-06-04] MEDS: NIFEdipine 30 MG XL TAB PO SCH (09:57)
[2021-06-04] MEDS: DOCUSATE SODIUM 100MG CAPSULE PO SCH ×2 (09:57→20:45)
[2021-06-04] MEDS: hydroCHLOROthiazide 12.5 MG CAPSULE PO SCH (09:58)
[2021-06-04] MEDS: PROPRANOLOL 60 MG LA CAP PO SCH (09:58)
[2021-06-04] MEDS: PRIMIDONE 250 MG TAB PO SCH ×2 (09:58→20:45)
[2021-06-04] MEDS: FOLIC ACID 1 MG TAB PO SCH (09:58)
[2021-06-04] MEDS: THIAMINE 100 MG TAB PO SCH (09:58)
[2021-06-04] MEDS: ASPIRIN 81MG ENTERIC TABLET PO SCH (09:58)
[2021-06-04] MEDS: ramipriL 5 MG CAP PO SCH (09:58)
[2021-06-04] MEDS: ASCORBIC ACID 500 MG TAB PO SCH (09:59)
--- NOTE | 2021-06-04 10:18 | REP ---
INDICATION: after chest tube placed. COMPARISON: Multiple the latest yesterday at 7:52 a.m. TECHNIQUE: PA and lateral FINDINGS: The right-sided thoracotomy tube is unchanged. The small right apical pneumothorax appears even smaller today. There are no new lung field abnormalities. The cardiomediastinal silhouette is stable. The osseous structures are stable. IMPRESSION: As above. <Electronically signed by Nuno Martinez > 06/04/21 2071
--- NOTE | 2021-06-04 16:34 | IPNPDOC ---
Subjective Date Seen The patient was seen on 06/04/21. Subjective Chief Complaint/HPI Mr. Burton is an 81-year-old male who is here for right pneumothorax. Patient was seen this morning. Denies any chest pain or dyspnea. He is anxious to go home. Chest x-ray was obtained today. The right apical pneumothorax is present but smaller per radiologist report. Objective Physical Examination General Exam: Positive: Alert, Cooperative Eye Exam: Negative: Sclera icteric ENT Exam: Positive: Atraumatic Neck Exam: Positive: Supple Chest Exam: Positive: Normal air movement Heart Exam: Positive: Bradycardic, Regular Rhythm Abdomen Exam: Positive: Normal bowel sounds, Soft; Negative: Tenderness Extremity Exam: Negative: Edema Neuro Exam: Positive: Normal Speech Psych Exam: Positive: Mental status NL, Mood NL Assessment /Plan Assessment Mr. Burton is an 81-year-old male who is here for right pneumothorax. Patient is a current smoker. Dr. Jack was consulted for right chest tube, recommendations appreciated. Right chest tube was placed on 06/01/2021 Plan/VTE VTE Prophylaxis Ordered?: Yes Plan 1. Right-sided pneumothorax Dr. Jack consulted, recommendations appreciated 2. Left lung nodule 6 mm in size in the left lower lobe Patient will need repeat CT chest in 6 months 3. Peripheral arterial disease Continue aspirin and pentoxifylline 4. Hypertension Continue propranolol, hydrochlorothiazide, ramipril, and nifedipine 5. Essential tremor Continue propranolol and primidone 6. Hyperlipidemia Continue atorvastatin 7. DVT prophylaxis Heparin subcu Disposition: Pending clinical improvement VS, I&O, 24H, Fishbone Vital Signs/I&O Vital Signs Date Time Temp Pulse Resp B/P (MAP) Pulse Ox O2 Delivery O2 Flow Rate FiO2 06/04/21 12:00 98.2 56 18 177/77 (110) 99 Room Air 06/02/21 16:00 4.0 I&O- Last 24 Hours up to 6 AM 06/04/21 06:00 Intake Total 480 ml Output Total 0 ml Balance 480 ml Laboratory Data 24H LABS Laboratory Tests 2 06/04/21 05:15: Immature Granulocyte % (Auto) 0.5, Neutrophils (%) (Auto) 65.2, Lymphocytes (%) (Auto) 19.2L, Monocytes (%) (Auto) 10.8H, Eosinophils (%) (Auto) 4.1H, Basophils (%) (Auto) 0.2, Neutrophils # (Auto) 6.2, Lymphocytes # (Auto) 1.8, Monocytes # (Auto) 1.0H, Eosinophils # (Auto) 0.4, Basophils # (Auto) 0.0, Nucleated Red Blood Cells % (auto) 0.0, Anion Gap 0L, Glomerular Filtration Rate > 60.0, Calcium Level 8.1L CBC/BMP Laboratory Tests 06/04/21 05:15 Microbiology Microbiology 06/01/21 Respiratory Virus Panel (PCR) ([facility]) - Final, Complete 06/01/21 Blood Culture - Preliminary, Resulted No Growth after 72 hours. All specime... 06/01/21 Blood Culture - Preliminary, Resulted No Growth after 72 hours. All specime... RON ALAMO DO Jun 04, 2021 16:34
[2021-06-04] MEDS ORDERED: hydrALAZINE 20MG/ML 1ML VIAL (J0360 PER 20MG) IV PRN (16:35)
[2021-06-05] VITALS: BP 150/72; O2SAT 95
[2021-06-05] MEDS: LEVALBUTEROL 1.25 MG/0.5 ML CONCENTRATE NEB NEB SCH ×4 (01:55→19:44)
[2021-06-05 04:00] VITALS: BP 133/76
[2021-06-05] MEDS: KETOROLAC 30 MG/ML 1ML VIAL IV SCH ×4 (04:06→22:47)
[2021-06-05 05:23] LABS: BASO % 0.3 % (0.0-1.0); EOS # 0.4 10^3/uL (0.0-0.5); EOS % 5.7 % (0.0-3.0); HEMATOCRIT 39.1 % (42.0-52.0); HEMOGLOBIN 12.9 g/dl (13.5-17.5); LYMPH # 1.9 10^3/uL (1.5-5.0); LYMPH % 28.4 % (24.0-44.0); MEAN CORPUSCULAR HEMOGLOBIN 31.9 pg (27.0-33.0); MEAN CORPUSCULAR VOLUME 96.5 fl (80.0-96.0); MONO # 0.8 10^3/uL (0.0-0.8); MONO % 11.9 % (2.0-8.0); NEUTROPHILS # 3.6 10^3/uL (1.5-8.5); NEUTROPHILS % 53.3 % (36.0-66.0); PLATELET COUNT, AUTOMATED 202 10^3/uL (150-450); RED BLOOD COUNT 4.05 10^6/uL (4.30-6.10); WHITE BLOOD COUNT 6.8 10^3/uL (4.0-10.0)
[2021-06-05 05:44] LABS: BLOOD UREA NITROGEN 18 MG/DL (7-18); CALCIUM LEVEL 8.5 MG/DL (8.8-10.2); CARBON DIOXIDE LEVEL 26 MEQ/L (21-32); CHLORIDE LEVEL 112 MEQ/L (98-107); CREATININE FOR GFR 0.45 MG/DL (0.70-1.30); GLOMERULAR FILTRATION RATE > 60.0 (>35); GLUCOSE, FASTING 96 MG/DL (70-100); POTASSIUM SERUM 3.3 MEQ/L (3.5-5.1); SODIUM LEVEL 144 MEQ/L (136-145)
[2021-06-05 08:00] VITALS: BP 178/64; O2SAT 96
[2021-06-05] MEDS ORDERED: POTASSIUM CHLORIDE 10MEQ SR TABLET PO ONE ×2 (08:00→11:15)
[2021-06-05] MEDS: MOM 30ML SUSPENSION UDC PO SCH (08:52)
[2021-06-05] MEDS: MULTIVITAMINS/MINERALS THERAP 1 TAB PO SCH (08:52)
[2021-06-05] MEDS: hydroCHLOROthiazide 12.5 MG CAPSULE PO SCH (08:52)
[2021-06-05] MEDS: DOCUSATE SODIUM 100MG CAPSULE PO SCH ×2 (08:53→21:00)
[2021-06-05] MEDS: HEPARIN SOD (PORCINE) 5000UNITS/ML 1ML VIAL/SYRINGE SC SCH ×2 (08:53→21:44)
[2021-06-05] MEDS: ATORVASTATIN 20 MG TAB PO SCH (08:54)
[2021-06-05] MEDS: FOLIC ACID 1 MG TAB PO SCH (08:54)
[2021-06-05] MEDS: NIFEdipine 30 MG XL TAB PO SCH (08:54)
[2021-06-05] MEDS: ASPIRIN 81MG ENTERIC TABLET PO SCH (08:54)
[2021-06-05] MEDS: ASCORBIC ACID 500 MG TAB PO SCH (08:55)
[2021-06-05] MEDS: PANTOPRAZOLE 40MG TAB (PROTONIX) PO SCH (08:57)
[2021-06-05] MEDS: PENTOXIFYLLINE 400 MG TAB PO SCH ×3 (10:22→21:46)
[2021-06-05] MEDS: PROPRANOLOL 60 MG LA CAP PO SCH (10:22)
[2021-06-05] MEDS: PRIMIDONE 250 MG TAB PO SCH ×2 (10:22→21:46)
[2021-06-05] MEDS: ramipriL 5 MG CAP PO SCH (10:22)
--- NOTE | 2021-06-05 11:00 | REP ---
INDICATION: after chest tube placed. COMPARISON: PA and lateral chest, 06/04/2021. TECHNIQUE: Upright PA and lateral chest images were obtained. FINDINGS: There is a large bore thoracostomy tube on the right. There is a small right apical pneumothorax. The lungs are clear. The heart borders and mediastinum are unremarkable. There is calcific vascular disease of the thoracic aorta. The upper abdominal bowel gas pattern is normal. There are no bony abnormalities. IMPRESSION: 1. Small right apical pneumothorax. 2. Large bore thoracostomy tube on the right. 3. Other findings as noted. No significant change. <Electronically signed by Tay Parisi > 06/05/21 [id number]
[2021-06-05 12:00] VITALS: BP 147/65; O2SAT 96
--- NOTE | 2021-06-05 14:50 | IPNPDOC ---
Subjective Date Seen The patient was seen on 06/05/21. Subjective Chief Complaint/HPI Mr. Burton is an 81-year-old male who is here for right pneumothorax. This morning, patient denies any chest pain or dyspnea. Chest x-ray demonstrates small right apical pneumothorax. Objective Physical Examination General Exam: Positive: Alert, Cooperative Eye Exam: Negative: Sclera icteric ENT Exam: Positive: Atraumatic Neck Exam: Positive: Supple Chest Exam: Positive: Normal air movement Heart Exam: Positive: Bradycardic, Regular Rhythm Abdomen Exam: Positive: Normal bowel sounds, Soft; Negative: Tenderness Extremity Exam: Negative: Edema Neuro Exam: Positive: Normal Speech Psych Exam: Positive: Mental status NL, Mood NL Assessment /Plan Assessment Mr. Burton is an 81-year-old male who is here for right pneumothorax. Patient is a current smoker. Dr. Jakc was consulted for right chest tube, recommendations appreciated. Right chest tube was placed on 06/01/2021 Plan/VTE VTE Prophylaxis Ordered?: Yes Plan 1. Right-sided pneumothorax Dr. Jack managing chest tube 2. Left lung nodule 6 mm in size in the left lower lobe Patient will need repeat CT chest in 6 months 3. Peripheral arterial disease Continue aspirin and pentoxifylline 4. Hypertension Continue hydrochlorothiazide, ramipril, and nifedipine Since patient has bradycardia, will place holding parameters on propranolol 5. Essential tremor Continue primidone Holding parameters added to propranolol 6. Hyperlipidemia Continue atorvastatin 7. DVT prophylaxis Heparin subcu Disposition: Pending clinical improvement and recommendations from Dr. Jack VS, I&O, 24H, Fishbone Vital Signs/I&O Vital Signs Date Time Temp Pulse Resp B/P (MAP) Pulse Ox O2 Delivery O2 Flow Rate FiO2 06/05/21 12:00 97.3 38 18 147/65 (92) 100 Room Air 06/02/21 16:00 4.0 I&O- Last 24 Hours up to 6 AM 06/05/21 05:59 Intake Total 180 ml Output Total 6 ml Balance 174 ml Laboratory Data 24H LABS Laboratory Tests 2 06/05/21 04:55: Immature Granulocyte % (Auto) 0.4, Neutrophils (%) (Auto) 53.3, Lymphocytes (%) (Auto) 28.4, Monocytes (%) (Auto) 11.9H, Eosinophils (%) (Auto) 5.7H, Basophils (%) (Auto) 0.3, Neutrophils # (Auto) 3.6, Lymphocytes # (Auto) 1.9, Monocytes # (Auto) 0.8, Eosinophils # (Auto) 0.4, Basophils # (Auto) 0.0, Nucleated Red Blood Cells % (auto) 0.0, Anion Gap 6L, Glomerular Filtration Rate > 60.0, Calcium Level 8.5L, Magnesium Level 2.0 CBC/BMP Laboratory Tests 06/05/21 04:55 Microbiology Microbiology 06/01/21 Respiratory Virus Panel (PCR) ([facility]) - Final, Complete 06/01/21 Blood Culture - Preliminary, Resulted No Growth after 72 hours. All specime... 06/01/21 Blood Culture - Preliminary, Resulted No Growth after 72 hours. All specime... RON ALAMO DO Jun 05, 2021 14:50
[2021-06-05 16:00] VITALS: BP 143/63; O2SAT 98
--- NOTE | 2021-06-05 16:50 | IPN ---
PROGRESS NOTE DATE: 06/05/2021 Mr. Burton is doing quite well today. He is breathing well, and his pain is being well controlled at the chest tube insertion site. His vital signs show a maximum temperature (T-max) of 98.2 with a heart rate that ranges between 52-55 in a sinus rhythm, respiratory rate of 17-19 without the use of accessory muscles, who is 95%-97% saturated on room air. His blood pressure is ranging between 133/76 to 178/64. His intake and output for the past 24 hours have been recorded as 180 in and 60 mL out. He has had one void. I suspect the outputs are off. Chest tube drainage is always 6 mL, and there is no air leak. He weighs 65.9 kg today compared to 65.3 kg yesterday. PHYSICAL EXAMINATION: He has equal breath sounds on either side. I hear no wheezes, rhonchi, or rales. Percussion note is full to the diaphragm. Cardiac exam is without murmurs, clicks, gallops, or rubs. I cannot feel his point of maximal impulse (PMI). S1 and S2 are normal. Abdomen is soft and nontender. Bowel sounds are positive. There is no hepatomegaly. No costovertebral angle (CVA) tenderness. He is slightly tympanitic. Extremities show no pretibial edema, no calf tenderness, no differential swelling of the upper extremities. Skin is warm, dry, and perfused without cyanosis or mottling, including that of the nailbeds and knees. Neck is supple. There is no jugular venous distention. No subcutaneous emphysema. Trachea is midline. Mouth shows his mucous membranes to be pink and moist. Lips and commissures without lesions. No thrush. Eyes show his pupils to be equal and reactive. Extraocular motion intact. Sclerae anicteric. Neurologic shows II-XII intact. Normal gross motor, gross sensation intact. Gait is not tested. Psychiatric shows him to be awake, alert, and oriented times three with appropriate mood and affect and conversational. His white count today is 6.8 with a hemoglobin and hematocrit of 12.9 and 39.1, respectively. Platelet count is 202 and stable, and differential shows 53% neutrophils, 28% lymphocytes, and 11% monocytes. There are no immature forms or toxic granulations. His electrolytes are normal except for a potassium of 3.3 BUN and creatinine are 6 and 0.45 with a glucose of 96 and a calcium 8.5 with a magnesium of 2.0. His chest x-ray shows his lung fully expanded to the chest wall. There may be a small millimeter airspace at the cupula surrounding what looks to be scar tissue on the visceral pleura. IMPRESSION: 1. Spontaneous pneumothorax, right side. 2. Tobacco abuse. 3. Peripheral vascular disease. 4. Hypertension. 5. Essential tremor. 6. Dyslipidemia. 7. Hypokalemia. PLAN AND DISCUSSION: I will discontinue his chest tube suction today. If the medical service has not, I will supplement him with potassium. We will check a chest x-ray tomorrow. If the lung is still up, I will remove his chest tube.
[2021-06-05 18:33] LABS: BLOOD UREA NITROGEN 24 MG/DL (7-18); CALCIUM LEVEL 8.6 MG/DL (8.8-10.2); CARBON DIOXIDE LEVEL 30 MEQ/L (21-32); CHLORIDE LEVEL 111 MEQ/L (98-107); CREATININE FOR GFR 0.76 MG/DL (0.70-1.30); GLOMERULAR FILTRATION RATE > 60.0 (>35); GLUCOSE, FASTING 105 MG/DL (70-100); POTASSIUM SERUM 4.3 MEQ/L (3.5-5.1); SODIUM LEVEL 145 MEQ/L (136-145)
[2021-06-05 20:00] VITALS: BP 158/70
[2021-06-06] VITALS: BP 156/71
[2021-06-06 04:00] VITALS: BP 140/64
[2021-06-06 05:37] LABS: BASO % 0.1 % (0.0-1.0); EOS # 0.5 10^3/uL (0.0-0.5); EOS % 6.7 % (0.0-3.0); HEMOGLOBIN 13.5 g/dl (13.5-17.5); LYMPH # 1.6 10^3/uL (1.5-5.0); LYMPH % 24.6 % (24.0-44.0); MEAN CORPUSCULAR HEMOGLOBIN 32.3 pg (27.0-33.0); MEAN CORPUSCULAR HGB CONC 32.9 g/dl (32.0-36.5); MEAN CORPUSCULAR VOLUME 98.1 fl (80.0-96.0); MONO # 0.8 10^3/uL (0.0-0.8); MONO % 12.3 % (2.0-8.0); NEUTROPHILS # 3.7 10^3/uL (1.5-8.5); NEUTROPHILS % 55.7 % (36.0-66.0); PLATELET COUNT, AUTOMATED 210 10^3/uL (150-450); RED BLOOD COUNT 4.18 10^6/uL (4.30-6.10); WHITE BLOOD COUNT 6.7 10^3/uL (4.0-10.0)
[2021-06-06 06:10] LABS: BLOOD UREA NITROGEN 27 MG/DL (7-18); CALCIUM LEVEL 7.9 MG/DL (8.8-10.2); CARBON DIOXIDE LEVEL 28 MEQ/L (21-32); CHLORIDE LEVEL 114 MEQ/L (98-107); CREATININE FOR GFR 0.52 MG/DL (0.70-1.30); GLOMERULAR FILTRATION RATE > 60.0 (>35); GLUCOSE, FASTING 102 MG/DL (70-100); POTASSIUM SERUM 4.2 MEQ/L (3.5-5.1); SODIUM LEVEL 144 MEQ/L (136-145)
[2021-06-06] MEDS: LEVALBUTEROL 1.25 MG/0.5 ML CONCENTRATE NEB NEB SCH ×3 (07:16→20:04)
[2021-06-06 08:00] VITALS: BP 155/79; O2SAT 98
--- NOTE | 2021-06-06 08:32 | REP ---
INDICATION: after chest tube placed. COMPARISON: 06/05/2021 at 9:54 a.m. TECHNIQUE: PA and lateral FINDINGS: Cardiomediastinal silhouette is unchanged. The tiny right apical pneumothorax seen previously is not identified today. The right-sided thoracotomy tube is unchanged. There is no significant change in appearance of the lung luke are osseous structures. IMPRESSION: As above. <Electronically signed by Nuno Martinez > 06/06/21 [id number]
[2021-06-06] MEDS: MOM 30ML SUSPENSION UDC PO SCH (09:00)
[2021-06-06] MEDS: PENTOXIFYLLINE 400 MG TAB PO SCH ×3 (09:56→21:38)
[2021-06-06] MEDS: NIFEdipine 30 MG XL TAB PO SCH (09:56)
[2021-06-06] MEDS: FOLIC ACID 1 MG TAB PO SCH (09:57)
[2021-06-06] MEDS: MULTIVITAMINS/MINERALS THERAP 1 TAB PO SCH (09:57)
[2021-06-06] MEDS: PRIMIDONE 250 MG TAB PO SCH ×2 (09:57→21:39)
[2021-06-06] MEDS: DOCUSATE SODIUM 100MG CAPSULE PO SCH ×2 (09:57→21:39)
[2021-06-06] MEDS: PROPRANOLOL 60 MG LA CAP PO SCH (09:57)
[2021-06-06] MEDS: ASPIRIN 81MG ENTERIC TABLET PO SCH (09:58)
[2021-06-06] MEDS: PANTOPRAZOLE 40MG TAB (PROTONIX) PO SCH (09:58)
[2021-06-06] MEDS: ASCORBIC ACID 500 MG TAB PO SCH (09:58)
[2021-06-06] MEDS: ATORVASTATIN 20 MG TAB PO SCH (09:58)
[2021-06-06] MEDS: KETOROLAC 30 MG/ML 1ML VIAL IV SCH ×2 (09:58→12:13)
[2021-06-06] MEDS: hydroCHLOROthiazide 12.5 MG CAPSULE PO SCH (09:58)
[2021-06-06] MEDS: ramipriL 5 MG CAP PO SCH (09:58)
[2021-06-06] MEDS: HEPARIN SOD (PORCINE) 5000UNITS/ML 1ML VIAL/SYRINGE SC SCH ×2 (09:58→21:39)
[2021-06-06 12:00] VITALS: BP 160/69; O2SAT 98
--- NOTE | 2021-06-06 12:18 | IPNPDOC ---
Subjective Date Seen The patient was seen on 06/06/21. Subjective Chief Complaint/HPI Mr. Burton is an 81-year-old male who is here for right pneumothorax. Patient was seen in the morning when he still had the chest tube in place. Denied any chest pain or dyspnea. CXR does not demonstrate the right apical pneumothorax. Objective Physical Examination General Exam: Positive: Alert, Cooperative Eye Exam: Negative: Sclera icteric ENT Exam: Positive: Atraumatic Neck Exam: Positive: Supple Chest Exam: Positive: Normal air movement Heart Exam: Positive: Bradycardic, Regular Rhythm Abdomen Exam: Positive: Normal bowel sounds, Soft; Negative: Tenderness Extremity Exam: Negative: Edema Neuro Exam: Positive: Normal Speech Psych Exam: Positive: Mental status NL, Mood NL Assessment /Plan Assessment Mr. Burton is an 81-year-old male who is here for right pneumothorax. Patient is a current smoker. Dr. Jack was consulted for right chest tube, recomm endations appreciated. Right chest tube was placed on 06/01/2021 Plan/VTE VTE Prophylaxis Ordered?: Yes Plan 1. Right-sided pneumothorax Dr. Jack managing chest tube 2. Left lung nodule 6 mm in size in the left lower lobe Patient will need repeat CT chest in 6 months 3. Peripheral arterial disease Continue aspirin and pentoxifylline 4. Hypertension Continue hydrochlorothiazide, ramipril, and nifedipine Since patient has bradycardia, will place holding parameters on propranolol 5. Essential tremor Continue primidone Discontinue propranolol due to bradycardia 6. Hyperlipidemia Continue atorvastatin 7. DVT prophylaxis Heparin subcu Disposition: Pending clinical improvement and recommendations from Dr. Jack VS, I&O, 24H, [place] Vital Signs/I&O Vital Signs Date Time Temp Pulse Resp B/P (MAP) Pulse Ox O2 Delivery O2 Flow Rate FiO2 06/06/21 09:57 40 155/79 06/06/21 08:00 96.9 18 100 Room Air 06/02/21 16:00 4.0 I&O- Last 24 Hours up to 6 AM 06/06/21 06:00 Intake Total 860 ml Balance 860 ml Laboratory Data 24H LABS Laboratory Tests 2 06/05/21 17:48: Anion Gap 4L, Glomerular Filtration Rate > 60.0, Calcium Level 8.6L 06/06/21 05:23: Anion Gap 2L, Glomerular Filtration Rate > 60.0, Calcium Level 7.9L, Immature Granulocyte % (Auto) 0.6, Neutrophils (%) (Auto) 55.7, Lymphocytes (%) (Auto) 24.6, Monocytes (%) (Auto) 12.3H, Eosinophils (%) (Auto) 6.7H, Basophils (%) (Auto) 0.1, Neutrophils # (Auto) 3.7, Lymphocytes # (Auto) 1.6, Monocytes # (Auto) 0.8, Eosinophils # (Auto) 0.5, Basophils # (Auto) 0.0, Nucleated Red Blood Cells % (auto) 0.0 CBC/BMP Laboratory Tests 06/05/21 17:48 06/06/21 05:23 Microbiology Microbiology 06/01/21 Respiratory Virus Panel (PCR) ([facility]) - Final, Complete 06/01/21 Blood Culture - Preliminary, Resulted No Growth after 72 hours. All specime... 06/01/21 Blood Culture - Preliminary, Resulted No Growth after 72 hours. All specime... RON ALAMO DO Jun 06, 2021 12:18
[2021-06-06 16:00] VITALS: BP 152/70; O2SAT 96
[2021-06-06 20:00] VITALS: BP 150/66; O2SAT 96
[2021-06-07] VITALS: BP 123/60; O2SAT 98
[2021-06-07] MEDS: LEVALBUTEROL 1.25 MG/0.5 ML CONCENTRATE NEB NEB SCH ×2 (02:00→08:00)
[2021-06-07 04:00] VITALS: BP 152/74
[2021-06-07 05:18] LABS: BASO % 0.1 % (0.0-1.0); EOS # 0.4 10^3/uL (0.0-0.5); EOS % 5.7 % (0.0-3.0); HEMATOCRIT 40.8 % (42.0-52.0); HEMOGLOBIN 13.2 g/dl (13.5-17.5); LYMPH # 2.2 10^3/uL (1.5-5.0); LYMPH % 28.5 % (24.0-44.0); MEAN CORPUSCULAR HEMOGLOBIN 32.2 pg (27.0-33.0); MEAN CORPUSCULAR HGB CONC 32.4 g/dl (32.0-36.5); MEAN CORPUSCULAR VOLUME 99.5 fl (80.0-96.0); MONO # 0.9 10^3/uL (0.0-0.8); MONO % 11.2 % (2.0-8.0); NEUTROPHILS # 4.1 10^3/uL (1.5-8.5); NEUTROPHILS % 54.1 % (36.0-66.0); PLATELET COUNT, AUTOMATED 210 10^3/uL (150-450); WHITE BLOOD COUNT 7.6 10^3/uL (4.0-10.0)
[2021-06-07 05:34] LABS: BLOOD UREA NITROGEN 23 MG/DL (7-18); CARBON DIOXIDE LEVEL 27 MEQ/L (21-32); CHLORIDE LEVEL 112 MEQ/L (98-107); GLOMERULAR FILTRATION RATE > 60.0 (>35); GLUCOSE, FASTING 88 MG/DL (70-100); POTASSIUM SERUM 3.7 MEQ/L (3.5-5.1); SODIUM LEVEL 145 MEQ/L (136-145)
--- NOTE | 2021-06-07 06:44 | IPN ---
PROGRESS NOTE DATE: 06/06/2021 SUBJECTIVE: Mr. Burton is doing quite well today. He is sitting up comfortably. His chest tube has been off suction. There is no air leak. His vital signs shows a T-max of 98.4 with a heart rate that ranges between 40 and 68 and is sinus rhythm, respiratory rate of 17 to 18 without the use of accessory muscles who is 95 to 100% saturated on room air. His blood pressure is ranging between 156/71 to 140/64. His intake and output over the past 24 hours has been recorded as 860 in and nothing out. The I and O's are not being kept well. His weight today is 69.5 kilos compared to 65.9 kilos yesterday. OBJECTIVE: His lungs shows equal breath sounds on either side with normal vesicular sounds on each side. There are no wheezes, rhonchi, or rales. Percussion note is full to the diaphragm. Cardiac exam is without murmurs, clicks, gallops, or rubs. I cannot feel his point of maximal impulse (PMI). S1 and S2 are normal. Abdomen is soft and nontender. Bowel sounds are positive. There is no hepatomegaly. No costovertebral angle (CVA) tenderness. Extremities show no pretibial edema, no calf tenderness, no differential swelling of the upper extremities. Skin is warm, dry, and perfused without cyanosis or mottling, including that of the nailbeds and knees. Neck is supple. There is no jugular venous distention. No subcutaneous emphysema. Trachea is midline. Mouth shows his mucous membranes to be pink and moist. Lips and commissures without lesions. No thrush. Eyes show his pupils to be equal and reactive. Extraocular motion intact. Sclerae anicteric. Neurologic shows II-XII intact. Normal gross motor, gross sensation intact. Gait is not tested. Psychiatric shows him to be awake, alert, and oriented times three with appropriate mood and affect and conversational. LABORATORY DATA: His white count today is 6.7 with a hemoglobin and hematocrit of 13.5 and 41.0, slightly improved from yesterday. Platelet count is 210,000, differential shows 55% neutrophils and 24% lymphocytes and 12% monocytes. There are no immature forms or toxic granulations. His electrolytes are essentially normal with a BUN and creatinine of 27 and 0.52, glucose of 102 and a calcium of 7.9. His chest x-ray shows his lung fully expanded to the chest wall. There is a linear opacity at the cupola, however with lung markings beyond it and may represent a skin fold or scarred visceral pleural. Costophrenic angles are sharp. There are no infiltrates. IMPRESSION: 1. Spontaneous pneumothorax, right side. 2. Tobacco abuse. 3. Peripheral vascular disease. 4. Hypertension. 5. Essential tremor. 6. Dyslipidemia. 7. Hypokalemia, resolved. PLAN/DISCUSSION: I will remove his chest tube today. We will wait another 24 hours and take another chest x-ray. If that chest x-ray is satisfactory, we will plan for discharge in the morning.
[2021-06-07 07:32] VITALS: BP 181/73
--- NOTE | 2021-06-07 08:44 | DSES ---
DISCHARGE SUMMARY DATE OF ADMISSION: 06/01/2021 DATE OF DISCHARGE: 06/07/2021 DISCHARGE DIAGNOSES: 1. Spontaneous pneumothorax, right side. 2. Tobacco abuse. 3. Peripheral vascular disease. 4. Hypertension. 5. Essential tremor. 6. Dyslipidemia. HOSPITAL COURSE: Patient is an 81-year-old white male who presented to the Emergency Room on 06/01/2021 with a three day antecedent history of shortness of breath with chest pain and pressure. The chest pressure was concentrated in the middle of his chest on his right side. Over the next succeeding two days he became more and more short of breath and finally sought medical attention. He was found to have a 100% pneumothorax. A chest tube was placed with complete reexpansion of the lung. Chest tube was kept on suction for two days and then taken off suction. At that point in time the lung from the chest wall at the cupola and the chest tube was again placed on suction. After another two days of suction, the chest x-ray showed the lung to be fully expanded to the chest wall. His pain is well-controlled at the chest tube insertion site. Chest tube was then removed. He is being discharged today to home with regular activity except for heavy lifting. He is being discharged on his home medications which include vitamin C 500 mg q. day, aspirin 81 mg q. day, atorvastatin 20 mg q. day, Hydrochlorothiazide 12.5 mg q. day, nifedipine 90 mg q. day, pentoxifylline 400 mg t.i.d., Primidone 250 mg b.i.d., Propanolol LA 60 mg q. day and Ramipril 10 mg q. day. He will return to see me in 10 days with a chest x-ray. His discharge hemoglobin and hematocrit are 13.2 and 40.8 with a platelet count of 210,000 and a white count of 7.6. The electrolytes are essentially normal with a BUN and creatinine of 23 and 0.5, glucose of 88, and a calcium of 8.0. His chest x-ray shows the lung fully expanded to the chest wall with sharp costophrenic angles without infiltrates.
[2021-06-07] MEDS: PENTOXIFYLLINE 400 MG TAB PO SCH (08:57)
[2021-06-07] MEDS: PRIMIDONE 250 MG TAB PO SCH (08:58)
[2021-06-07] MEDS: HEPARIN SOD (PORCINE) 5000UNITS/ML 1ML VIAL/SYRINGE SC SCH (08:58)
[2021-06-07] MEDS: ASCORBIC ACID 500 MG TAB PO SCH (08:58)
[2021-06-07] MEDS: ramipriL 5 MG CAP PO SCH (08:58)
[2021-06-07] MEDS: FOLIC ACID 1 MG TAB PO SCH (08:59)
[2021-06-07] MEDS: ASPIRIN 81MG ENTERIC TABLET PO SCH (08:59)
[2021-06-07] MEDS: hydroCHLOROthiazide 12.5 MG CAPSULE PO SCH (08:59)
[2021-06-07] MEDS: MULTIVITAMINS/MINERALS THERAP 1 TAB PO SCH (08:59)
[2021-06-07] MEDS: PANTOPRAZOLE 40MG TAB (PROTONIX) PO SCH (08:59)
[2021-06-07 09:00] VITALS: BP 181/73
[2021-06-07] MEDS: DOCUSATE SODIUM 100MG CAPSULE PO SCH (09:00)
[2021-06-07] MEDS: ATORVASTATIN 20 MG TAB PO SCH (09:00)
[2021-06-07] MEDS: MOM 30ML SUSPENSION UDC PO SCH (09:00)
[2021-06-07] MEDS ORDERED: PROPRANOLOL 60 MG LA CAP PO SCH (09:00)
[2021-06-07] MEDS ORDERED: NIFEdipine 30 MG XL TAB PO SCH (09:00)
[2021-06-07] MEDS ORDERED: AMLO1TAB24 PO (09:16)
--- NOTE | 2021-06-07 09:53 | REP ---
INDICATION: after chest tube placed. COMPARISON: 06/06/2021, 06/05/2021 TECHNIQUE: PA and lateral FINDINGS: The two view show the right sided chest tube removed. I do not see recurrence/enlargement of the previous small right apical pneumothorax. No pleural effusion. There are no other changes in the cardiomediastinal silhouette or lung luke. Calcified tortuous aortic arch noted, unchanged. No acute bony finding. IMPRESSION: 1. Interval removal of the right apex chest tube without recurrence of the right apical pneumothorax. Otherwise stable chest. <Electronically signed by Sonu Bangura > 06/07/21 0949
--- NOTE | 2021-06-07 20:22 | DS.PDOC ---
Discharge Summary General Date of Admission Jun 01, 2021 at 15:19 Date of Discharge Jun 07, 2021 Specialist/Consultants Involve Thoracic surgery, Dr. Jack Discharge Summary PROCEDURES PERFORMED DURING STAY: Right chest tube insertion on [address] Jack ADMITTING DIAGNOSES: 1. Right sided pneumothorax 2. Peripheral arterial disease 3. Hypertension 4. Essential tremor 5. Hyperlipidemia 6. Chronic tobacco use DISCHARGE DIAGNOSES: 1. Right sided pneumothorax 2. Peripheral arterial disease 3. Hypertension 4. Essential tremor 5. Hyperlipidemia 6. Chronic tobacco use COMPLICATIONS/CHIEF COMPLAINT: Pneuomothorax. HISTORY OF PRESENT ILLNESS: Copied from admitting provider's H&P " 81-year-old male with a past medical history of hypertension and essential tremor. He developed sudden onset shortness of breath on Monday morning, with associated right-sided and central chest discomfort and pressure. Patient states that he felt well the day prior. Over the next 24 hours he developed worsening shortness of breath without cough or hemoptysis. Patient sought help at an urgent care center where he was given nasal cannula with oxygen and an EKG was obtained. He was thought to have A. fib and was sent to the ER. EKG in the ER did not reveal atrial fibrillation but showed sinus rhythm with PVCs. Patient's chest x-ray in the ER showed a large right-sided pneumothorax without evidence for tension. Dr. Jack was consulted from the ER and admitted to PCU under hospitalist service. Chest tube was placed on 06/01/2021 with subsequent lung reexpansion on chest x-ray. " HOSPITAL COURSE: Patient did well during the hospitalization. Dr. Jack managed the chest tube. Chest tube was removed on 06/06/2021, and did well overnight. Otherwise, patient had persistently elevated SBP ranging from 140s to 170s with low heart rates ranging from 40s to 50s. On day of discharge, I discontinued nifedipine and started amlodipine. Otherwise this morning, patient denied any chest pain or dyspnea. He was very excited to go home. DISCHARGE MEDICATIONS: Please see below. ALLERGIES: Please see below. PHYSICAL EXAMINATION ON DISCHARGE: VITAL SIGNS: Please see below. GENERAL: Comfortable, in no apparent distress, thin HEENT: Head normocephalic, atraumatic NECK: Supple CARDIOVASCULAR EXAMINATION: Bradycardic but regular RESPIRATORY EXAMINATION: Lungs clear to auscultation bilaterally ABDOMINAL EXAMINATION: Soft, non-tender, normal bowel sounds EXTREMITIES: No pitting edema bilaterally PSYCHIATRIC EXAMINATION: Normal mood and affect LABORATORY DATA: Please see below. IMAGING: Radiologist interpretation CXR on admission Large right pneumothorax. No deviation of the trachea or midline structures. CXR on discharge 1. Interval removal of the right apex chest tube without recurrence of the right apical pneumothorax. Otherwise stable chest. PROGNOSIS: Good ACTIVITY: As tolerated DIET: As tolerated DISCHARGE PLAN: Home DISPOSITION: Home, Self-Care. DISCHARGE INSTRUCTIONS: 1. Follow up with Dr. Jack as scheduled (06/14/2021) 2. Follow up with PCP within 1 week ITEMS TO FOLLOWUP ON ON OUTPATIENT: 1. Blood pressure and heart rate DISCHARGE CONDITION: Stable Total time spent on discharge planning, discharge summary, and medication r econciliation: 32 minutes Vital Signs/I&Os Vital Signs Date Time Temp Pulse Resp B/P (MAP) Pulse Ox O2 Delivery O2 Flow Rate FiO2 06/07/21 09:00 181/73 06/07/21 08:59 55 06/07/21 07:32 98.5 18 97 Room Air 06/02/21 16:00 4.0 I&O- Last 24 Hours up to 6 AM 06/07/21 06:00 Intake Total 820 ml Balance 820 ml Laboratory Data Labs 24H Laboratory Tests 2 06/07/21 04:52: Immature Granulocyte % (Auto) 0.4, Neutrophils (%) (Auto) 54.1, Lymphocytes (%) (Auto) 28.5, Monocytes (%) (Auto) 11.2H, Eosinophils (%) (Auto) 5.7H, Basophils (%) (Auto) 0.1, Neutrophils # (Auto) 4.1, Lymphocytes # (Auto) 2.2, Monocytes # (Auto) 0.9H, Eosinophils # (Auto) 0.4, Basophils # (Auto) 0.0, Nucleated Red Blood Cells % (auto) 0.0, Anion Gap 6L, Glomerular Filtration Rate > 60.0, Calcium Level 8.0L CBC/BMP Laboratory Tests 06/07/21 04:52 Microbiology Microbiology 06/01/21 Respiratory Virus Panel (PCR) ([facility]) - Final, Complete 06/01/21 Blood Culture - Final, Complete NO GROWTH AFTER 5 DAYS 06/01/21 Blood Culture - Final, Complete NO GROWTH AFTER 5 DAYS Discharge Medications Scheduled Amlodipine Besylate (Amlodipine Besylate) 5 Mg Tablet, 5 MG PO DAILY Ascorbic Acid (Vitamin C) 500 Mg Capsule, 500 MG PO DAILY, (Reported) Aspirin (Ecotrin) 81 Mg Tablet.dr, 81 MG PO DAILY, (Reported) Atorvastatin Calcium (Atorvastatin Calcium) 20 Mg Tablet, 20 MG PO DAILY, (Reported) Calcium Carbonate/Vitamin D3 (Calcium 500+D Tablet Chew) 1 Each Tab.chew, 1 TAB PO DAILY, (Reported) Fish Oil/Dha/Epa (Fish Oil 1,200 mg Fish Oil) 1 Each Capsule, 1 CAP PO TID, (Reported) Flaxseed Oil (Flax Oil) 1,000 Mg Capsule, 1,000 MG PO BID, (Reported) Hydrochlorothiazide (Hydrochlorothiazide) 12.5 Mg Tablet, 12.5 MG PO DAILY, (Reported) Pentoxifylline (Pentoxifylline) 400 Mg Tablet.er, 400 MG PO TID, (Reported) Primidone (Primidone) 250 Mg Tablet, 250 MG PO BID, (Reported) Propranolol Hcl (Inderal LA) 60 Mg Cap.sa.24h, 60 MG PO DAILY, (Reported) Ramipril (Ramipril) 10 Mg Capsule, 10 MG PO DAILY, (Reported) Allergies Coded Allergies: No Known Allergies (Verified Allergy, Unknown, 06/01/21) RON ALAMO DO Jun 07, 2021 20:22
== END 2021-06-07 10:09 | disposition home or self-care (01) | DRG 201 ==
LOC: M ED 13:11 → EDBD 13:11 → M ED INP 15:19 → ENRESERV 15:30 → M PCU 15:49
PROVIDERS: ADMIT Internal Medicine; ATTEND Family Medicine
PROC: 0W9930Z Drainage of Right Pleural Cavity with Drainage Device, Percutaneous Approach (ICD-10-PCS; principal; 2021-06-01)
DX: J93.83 Other pneumothorax (principal); I73.9 Peripheral vascular disease, unspecified; I10 Essential (primary) hypertension; G25.0 Essential tremor; E78.5 Hyperlipidemia, unspecified; F17.210 Nicotine dependence, cigarettes, uncomplicated; F10.10 Alcohol abuse, uncomplicated; Z79.82 Long term (current) use of aspirin; Z79.899 Other long term (current) drug therapy; R91.1 Solitary pulmonary nodule; E87.6 Hypokalemia; Z20.822 Contact with and (suspected) exposure to COVID-19

== ENCOUNTER → 2021-06-17 | Outpatient (CLI) | payer MEDICARE, BC ==
[~2021-06-17] MED LIST: AMLO1TAB24 PO; ATOR1TAB21 PO; ECOT81TA5 PO; HYDR12.55 PO; INDE60CA4 PO; KP F1200 PO; NIFE1TAB50 PO; OYST500C PO; PENT400T23 PO; PRIM250T8 PO; RAMI1CAP26 PO; SM F10002 PO; VITA500C24 PO
--- NOTE | 2021-06-17 09:59 | REP ---
INDICATION: PNEUMOTHORAX. COMPARISON: Multiple the latest 06/07/2021 TECHNIQUE: PA and lateral FINDINGS: Cardiomediastinal silhouette lung luke are unchanged. No acute patchy parenchymal opacities or pleural effusions have developed. There is no recurrent pneumothorax. The pleural angles are sharp the heart is not enlarged. There is no change in the osseous structures. IMPRESSION: Stable chest <Electronically signed by Nuno Martinez > 06/17/21 0955
== END ==
LOC: M PLAIMG 09:17
PROVIDERS: ATTEND Thoracic Surgery (Cardiothoracic Vascular Surgery)
DX: J93.83 Other pneumothorax (principal)

== ENCOUNTER → 2022-01-24 | Outpatient (CLI) | payer MEDICARE, BC | LOC: M RAD 11:24 | PROVIDERS: ATTEND Internal Medicine Pulmonary Disease | DX: I71.4 Abdominal aortic aneurysm, without rupture (principal); J93.12 Secondary spontaneous pneumothorax; J43.9 Emphysema, unspecified ==

== ENCOUNTER → 2023-01-16 | Outpatient (CLI) | payer MEDICARE, BC | LOC: M RAD 12:28 | PROVIDERS: ATTEND Physician Assistant | DX: I73.9 Peripheral vascular disease, unspecified (principal) ==

== ENCOUNTER → 2023-01-24 | Outpatient (CLI) | payer MEDICARE, BC | LOC: M RAD 08:13 | PROVIDERS: ATTEND Internal Medicine Pulmonary Disease | DX: R91.8 Other nonspecific abnormal finding of lung field (principal) ==

== ENCOUNTER → 2023-06-09 | Outpatient (CLI) | payer MEDICARE, BC | LOC: M RAD 08:53 | PROVIDERS: ATTEND Nurse Practitioner Family | DX: I71.40 Abdominal aortic aneurysm, without rupture, unspecified (principal) ==

== ENCOUNTER → 2024-03-04 | Outpatient (CLI) | payer MEDICARE, BC ==
[~2024-03-04] MED LIST changes: +RAMI10CA64 PO; -RAMI1CAP26 PO
== END ==
LOC: M PLAIMG 10:14
PROVIDERS: ATTEND Internal Medicine Pulmonary Disease
DX: I25.84 Coronary atherosclerosis due to calcified coronary lesion (principal); R91.1 Solitary pulmonary nodule

== ENCOUNTER → 2024-11-14 | Outpatient (CLI) | payer MEDICARE, BC | LOC: M RAD 09:00 | PROVIDERS: ATTEND Physician Assistant | DX: I71.40 Abdominal aortic aneurysm, without rupture, unspecified (principal); I70.0 Atherosclerosis of aorta; I74.09 Other arterial embolism and thrombosis of abdominal aorta ==

== ENCOUNTER → 2025-01-11 | Outpatient (CLI) | payer MEDICARE, BC ==
[2025-01-11 11:08] LABS: BASO % 0.2 % (0.0-1.0); EOS # 0.2 10^3/uL (0.0-0.5); EOS % 2.7 % (0.0-3.0); HEMATOCRIT 41.6 % (42.0-52.0); HEMOGLOBIN 13.5 g/dl (13.5-17.5); LYMPH % 16.5 % (24.0-44.0); MEAN CORPUSCULAR HEMOGLOBIN 30.1 pg (27.0-33.0); MEAN CORPUSCULAR HGB CONC 32.5 g/dl (32.0-36.5); MEAN CORPUSCULAR VOLUME 92.9 fl (80.0-96.0); MONO # 0.8 10^3/uL (0.0-0.8); MONO % 12.8 % (2.0-8.0); NEUTROPHILS # 4.3 10^3/uL (1.5-8.5); NEUTROPHILS % 67.5 % (36.0-66.0); PLATELET COUNT, AUTOMATED 241 10^3/uL (150-450); RED BLOOD COUNT 4.48 10^6/uL (4.30-6.10); WHITE BLOOD COUNT 6.3 10^3/uL (4.0-10.0)
[2025-01-11 11:30] LABS: ALBUMIN 3.3 G/DL (3.2-5.2); ALKALINE PHOSPHATASE 72 U/L (40-129); ALT/SGPT 25 U/L (7.0-40); AST/SGOT 22 U/L (<34); BILIRUBIN,TOTAL 0.5 MG/DL (0.3-1.2); BLOOD UREA NITROGEN 22 MG/DL (9-23); CALCIUM LEVEL 8.2 MG/DL (8.3-10.6); CARBON DIOXIDE LEVEL 28 MMOL/L (20-31); CHLORIDE LEVEL 106 MMOL/L (98-107); CREATININE FOR GFR 0.64 MG/DL (0.70-1.30); GLOMERULAR FILTRATION RATE > 90.0 (>35); GLUCOSE, FASTING 82 MG/DL (74-106); INR 1.06; PARTIAL THROMBOPLASTIN TIME 27.4 SECONDS (24.8-34.2); POTASSIUM SERUM 4.3 MMOL/L (3.5-5.1); PROTHROMBIN TIME 14.1 SECONDS (12.5-14.5); SODIUM LEVEL 142 MMOL/L (136-145); TOTAL PROTEIN 6.2 G/DL (5.7-8.2)
== END ==
LOC: M LAB 09:26
PROVIDERS: ATTEND Nurse Practitioner Family
DX: I25.10 Atherosclerotic heart disease of native coronary artery without angina pectoris (principal); I11.0 Hypertensive heart disease with heart failure; I63.89 Other cerebral infarction; G25.0 Essential tremor; I50.20 Unspecified systolic (congestive) heart failure